=== PATIENT | female | born 1960 | race African-American/Black ===

== ENCOUNTER 2019-06-18 19:14 | Emergency (ER) | payer SELFPAY ==
[~2019-06-18] VITALS: Ht 165.1 cm; Wt 54.5 kg
[2019-06-18 19:29] VITALS: Ht 165.1 cm; Wt 54.5 kg
[2019-06-18] MEDS ORDERED: ZPAK PO (21:44)
[2019-06-18] MEDS ORDERED: MUCINEX DM ER1 EAC1 PO (21:44)
[2019-06-18 22:03] VITALS: BP 122/74
== END 2019-06-18 22:04 | disposition home or self-care (01) ==
LOC: D.ER 19:14
DX: J06.9 Acute upper respiratory infection, unspecified (principal); R09.81 Nasal congestion; R05 Cough; Z72.0 Tobacco use

== ENCOUNTER 2020-10-09 03:57 | Emergency (ER) | payer OTHER ==
[~2020-10-09] VITALS: Ht 165.1 cm; Wt 52.3 kg
[~2020-10-09 03:57] MED LIST: KEFLEX500 MG PO; MEDROL DOSE PACK4 MG PO; MUCINEX DM ER1 EAC1 PO; ZPAK PO
[2020-10-09 04:02] VITALS: BP 162/88; Ht 165.1 cm; Wt 52.3 kg
[2020-10-09] MEDS ORDERED: BENADRYL25 MG PO (04:06)
== END 2020-10-09 04:30 | disposition home or self-care (01) ==
LOC: D.ER 03:57
DX: F41.9 Anxiety disorder, unspecified (principal); Z59.0 Homelessness